=== PATIENT | female | born 1970 | race Caucasian/White ===

== ENCOUNTER 2018-11-08 12:25 | Emergency (ER) | payer BC ==
[2018-11-08 12:42] VITALS: BP 167/95
[2018-11-08] MEDS ORDERED: LORazepam 0.5 MG Tab PO ONE (13:07)
--- NOTE | 2018-11-08 13:14 | EDM.PDOCBH ---
ED HPI GENERAL MEDICAL PROBLEM - General Chief Complaint: Behavioral/Psych Stated Complaint: SEVERE ANXIETY Time Seen by Provider: 11/08/18 12:45 Source of Information: Reports: Patient, RN Notes Reviewed History Limitations: Reports: No Limitations - History of Present Illness INITIAL COMMENTS - FREE TEXT/NARRATIVE: Patient is a 48-year-old female who presents to the ED for the evaluation of an acute anxiety attack. She states that she was at work and her work deemed that she needed to come to the ER for her anxiety symptoms. She states this started around 9 AM this morning, however she does not note any increased stress or triggers in her life that would cause increased anxiety at this time. She takes 40 mg Celexa daily. She states she did not further take any other medications that would have caused anxiety inducing symptoms. She is visibly anxious in the room. - Related Data Allergies Allergy/AdvReac Type Severity Reaction Status Date / Time No Known Allergies Allergy Verified 11/25/15 13:20 Home Meds: Home Meds Citalopram Hydrobromide [Celexa] 40 mg PO DAILY 02/08/15 [History] ALPRAZolam [Alprazolam] 0.5 mg PO Q6H PRN #16 tablet 11/08/18 [Rx] Past Medical History Other [employer] History: spontaneous AB Neurological History: Reports: Migraines Psychiatric History: Reports: Addiction, Anxiety, Depression Other Psychiatric History: denies addiction issues Social & Family History - Tobacco Use Smoking Status *Q: Never Smoker - Caffeine Use Caffeine Use: Reports: Coffee - Recreational Drug Use Recreational Drug Use: No - Living Situation & Occupation Living situation: Reports: Single, Other Occupation: Employed ED ROS GENERAL - Review of Systems Review Of Systems: See Below Constitutional: Reports: No Symptoms HEENT: Reports: No Symptoms Respiratory: Reports: No Symptoms Cardiovascular: Reports: No Symptoms Endocrine: Reports: No Symptoms GI/Abdominal: Reports: No Symptoms : Reports: No Symptoms Musculoskeletal: Reports: No Symptoms Skin: Reports: No Symptoms Neurological: Reports: No Symptoms Psychiatric: Reports: Anxiety Hematologic/Lymphatic: Reports: No Symptoms Immunologic: Reports: No Symptoms ED EXAM, BEHAVIORAL HEALTH - Physical Exam Exam: See Below Exam Limited By: No Limitations General Appearance: Alert, WD/WN, No Apparent Distress, Anxious Eye Exam: Bilateral Eye: EOMI, Normal Inspection, PERRL Ears: Normal External Exam Throat/Mouth: Normal Inspection, Normal Lips, Normal Teeth, Normal Gums, Normal Oropharynx, Normal Voice, No Airway Compromise Head: Atraumatic, Normocephalic Respiratory/Chest: No Respiratory Distress, Lungs Clear, Normal Breath Sounds, No Accessory Muscle Use, Chest Non-Tender Cardiovascular: Normal Peripheral Pulses, Regular Rate, Rhythm, No Murmur Extremities: Normal Inspection, Normal Capillary Refill Neurological: Alert, Normal Mood/Affect, Normal Cognition, Normal Gait, Normal Reflexes, No Motor/Sensory Deficits, Oriented x 3 Psychiatric: Alert, Normal Affect, Normal Cognition, Normal Mood, Oriented Skin Exam: Warm, Dry, Intact, Normal color, No rash COURSE, BEHAVIORAL HEALTH COMP - Course Vital Signs: Last Vital Signs Temp 96.9 F 11/08/18 12:39 Pulse 92 11/08/18 12:39 Resp 20 11/08/18 12:39 BP 167/95 H 11/08/18 12:39 Pulse Ox 96 11/08/18 12:39 Orders, Labs, Meds: Medications Discontinued Medications Generic Name Dose Route Start Last Admin Trade Name Jimena PRN Reason Stop Dose Admin Lorazepam 0.5 mg 11/08/18 13:07 11/08/18 13:25 Ativan PO 11/08/18 13:08 0.5 mg ONETIME ONE Administration Discharge vs Psych Eval/Treatment:: 11/08/18 13:14 Patient presents to the ED for the evaluation of increased anxiety. She is visibly anxious in the room, I did order 0.5 mg by mouth Ativan for treatment of this. I did discuss with the patient that I would be able to provide her with a few tablets for over the weekend, however she will need to follow up with her primary care provider for a sustained prescription of this medication. Departure - Departure Time of Disposition: 13:15 Disposition: Home, Self-Care 01 Condition: Fair Clinical Impression: Anxiety - Discharge Information *PRESCRIPTION DRUG MONITORING PROGRAM REVIEWED*: No *COPY OF PRESCRIPTION DRUG MONITORING REPORT IN PATIENT YESSY: No Prescriptions: ALPRAZolam [Alprazolam] 0.5 mg PO Q6H PRN #16 tablet PRN Reason: Anxiety Instructions: Panic Attack, [id number] Referrals: PCP,None [Primary Care Provider] - Forms: ED Department Discharge, ED Return to Work/School Form Additional Instructions: You have been evaluated in the ED today for your anxiety. You have been given 0.5 mg Ativan for your anxiety symptoms. You have been provided with a few tablets of Alprazolam (Xanax), this is another medicine that works like Ativan (lorazepam) this is for over the weekend, however you will need to follow up with your primary care provider for a sustained prescription of this medication. Please follow-up with them early next week to do so. This medication prescription has been electronically sent to [facility]. Please return to the ED if her symptoms change or worsen.
== END 2018-11-08 13:59 | disposition home or self-care (01) ==
LOC: JD.ED 12:25
DX: F41.9 Anxiety disorder, unspecified (principal); F32.9 Major depressive disorder, single episode, unspecified; Z79.899 Other long term (current) drug therapy
CPT/HCPCS: 99283; A9270

== ENCOUNTER 2020-12-12 09:58 | Emergency (ER) | payer SELFPAY ==
--- NOTE | 2020-12-12 11:05 | EDM.PDOC ---
ED HPI GENERAL MEDICAL PROBLEM - General Chief Complaint: Upper Extremity Injury/Pain Stated Complaint: LT WRIST INJURY Time Seen by Provider: 12/12/20 10:19 Source of Information: Reports: Patient History Limitations: Reports: No Limitations - History of Present Illness INITIAL COMMENTS - FREE TEXT/NARRATIVE: The patient presents with left wrist pain. She said 2 nights ago she was cooking and she fell backward and landed on her left arm. She has pain, swelling and ecchymosis to her left wrist. She did not hurt her head or neck. She is right handed. Onset: Sudden Duration: Day(s): (2) Location: Reports: Upper Extremity, Left (wrist) Quality: Reports: Sharp Severity: Moderate Improves with: Reports: Immobilization Worsens with: Reports: Movement Context: Reports: Trauma (fall) Associated Symptoms: Reports: No Other Symptoms Treatments INSURANCE LAW SPECIALIST: Reports: Cold Therapy Right Wrist Pain Score (Numeric/FACES): 7 - Related Data Allergies Allergy/AdvReac Type Severity Reaction Status Date / Time No Known Allergies Allergy Verified 12/12/20 10:18 Home Meds: Home Meds Citalopram Hydrobromide [Celexa] 40 mg PO DAILY 02/08/15 [History] Hydrocodone/Acetaminophen [Hydrocodone-Acetamin 5-325 mg] 1 - 2 each PO Q6H PRN #15 tablet 12/12/20 [Rx] Past Medical History Other [employer] WORK[employer] History: spontaneous AB Neurological History: Reports: Migraines Psychiatric History: Reports: Addiction, Anxiety, Depression Other Psychiatric History: denies addiction issues Social & Family History - Tobacco Use Tobacco Use Status *Q: Never Tobacco User - Caffeine Use Caffeine Use: Reports: None - Recreational Drug Use Recreational Drug Use: No - Living Situation & Occupation Living situation: Reports: Single, Other Occupation: Employed Review of Systems - Review of Systems Review Of Systems: See Below Constitutional: Reports: No Symptoms Eyes: Reports: No Symptoms Ears: Reports: No Symptoms Nose: Reports: No Symptoms Mouth/Throat: Reports: No Symptoms Respiratory: Reports: No Symptoms Cardiovascular: Reports: No Symptoms GI/Abdominal: Reports: No Symptoms Genitourinary: Reports: No Symptoms Musculoskeletal: Reports: Other (left wrist pain) ED EXAM, GENERAL - Physical Exam Exam: See Below Exam Limited By: No Limitations General Appearance: Alert, No Apparent Distress Ears: Normal External Exam Nose: Normal Inspection Head: Atraumatic, Normocephalic Neck: Normal Inspection Respiratory/Chest: No Respiratory Distress Extremities: Other (pain upon palpation to the left wrist. Edema and ecchymosis noted with ecchymosis in the dorsum of the hand. There is no pain in her hand.) ED TRAUMA EXTREMITY PROCEDURES - Splinting Left Upper Extremity Splint Site: Left wrist Pre-Procedure NV Status: Normal Post-Procedure NV Status: Normal Splint Material: Fiberglass Splint Design: Volar, Sling Applied & Form Fitted By: Provider Provider Post-Splint Application NV Check: NV Status Normal, Good Position Complications: No Course - Vital Signs Last Recorded V/S: Last Vital Signs Temp 98.0 F 12/12/20 10:19 Pulse 93 12/12/20 10:19 Resp 13 12/12/20 10:19 BP 129/90 12/12/20 10:19 Pulse Ox 100 12/12/20 10:19 - Orders/Labs/Meds Orders: Active Orders 24 hr Category Date Time Status Wrist Comp Min 3V Lt [CR] Stat Exams 12/12/20 10:26 Taken - Re-Assessments/Exams Free Text/Narrative Re-Assessment/Exam: 12/12/20 11:13 I ordered an x-ray and she has a distal radius and ulnar fracture. I put her in a splint and sling. I will have her follow up with Dr Abernathy. Departure - Departure Time of Disposition: 11:15 Disposition: Home, Self-Care 01 Condition: Good Clinical Impression: Fall Qualifiers: Encounter type: initial encounter Qualified Code(s): W19.XXXA - Unspecified fall, initial encounter Closed fracture distal radius and ulna Qualifiers: Encounter type: initial encounter Laterality: left Qualified Code(s): S52.502A - Unspecified fracture of the lower end of left radius, initial encounter for closed fracture; S52.602A - Unspecified fracture of lower end of left ulna, init ial encounter for closed fracture - Discharge Information *PRESCRIPTION DRUG MONITORING PROGRAM REVIEWED*: Not Applicable *COPY OF PRESCRIPTION DRUG MONITORING REPORT IN PATIENT YESSY: Not Applicable Prescriptions: Hydrocodone/Acetaminophen [Hydrocodone-Acetamin 5-325 mg] 1 - 2 each PO Q6H PRN #15 tablet PRN Reason: Pain Referrals: PCP,None [Primary Care Provider] - Alan Abernathy MD [Physician] - 1 Week Forms: ED Department Discharge Additional Instructions: Ice your wrist for 15 minutes 3 times per day for 2 days. Try to elevate your wrist above your heart as much as you can for 2 days. Take motrin or tylenol for pain. If that does not help, try the hydrocodone. Follow up with Dr Abernathy. Please return if you are worse. Use the sling for comfort for a couple days. Take it off a couple times per day and move your shoulder to avoid frozen shoulder. Sepsis Event Note (ED) - Evaluation Sepsis Screening Result: No Definite Risk - Focused Exam Vital Signs: Vital Signs Temp Pulse Resp BP Pulse Ox 12/12/20 10:19 98.0 F 93 13 129/90 100 - My Orders Last 24 Hours: My Active Orders 12/12/20 10:26 Wrist Comp Min 3V Lt [CR] Stat - Assessment/Plan Last 24 Hours: My Active Orders 12/12/20 10:26 Wrist Comp Min 3V Lt [CR] Stat
[2020-12-12 11:40] VITALS: BP 130/80; PULSE 70
--- NOTE | 2020-12-14 11:22 | CR ---
Left wrist: 4 views of the left wrist were obtained. Comparison: No prior wrist exam is available. Fracture is noted within the distal radius involving the metaphysis and epiphysis. Slight posterior impaction is seen with dorsal tilt of the distal radial articular margin. Fracture is also noted at the base of the ulnar styloid process. Diffuse soft tissue swelling is noted. No additional fracture or other abnormality is appreciated. Impression: 1. Distal radial fracture with slight posterior impaction causing dorsal tilt of the distal radial articular margin. 2. Ulnar styloid avulsion fracture. 3. Soft tissue swelling. Diagnostic code #3
== END 2020-12-12 11:39 | disposition home or self-care (01) ==
LOC: JD.ED 09:58
DX: S52.602A Unspecified fracture of lower end of left ulna, initial encounter for closed fracture (principal); W18.39XA Other fall on same level, initial encounter; Y93.G3 Activity, cooking and baking
CPT/HCPCS: 29125; 73110-26-LT; 73110-LT; 99283

== ENCOUNTER 2021-01-05 11:49 | Emergency (ER) | payer SELFPAY ==
[2021-01-05 12:13] VITALS: BP 154/102; PULSE 90
--- NOTE | 2021-01-05 12:42 | EDM.PDOC ---
ED HPI GENERAL MEDICAL PROBLEM - General Chief Complaint: Upper Extremity Injury/Pain Stated Complaint: LEFT WRIST INJURY Time Seen by Provider: 01/05/21 12:20 Source of Information: Reports: Patient, RN Notes Reviewed History Limitations: Reports: No Limitations - History of Present Illness INITIAL COMMENTS - FREE TEXT/NARRATIVE: Patient is a 50-year-old female who presents to the ER for a left wrist injury. Patient was seen in this ER on December 12 for similar injury, where she had a impacted fracture of her distal left radius and ulnar styloid fracture. There seem to be some slight dorsal angulation. She was placed in a splint and discharged home to follow-up with orthopedics. As far as I can tell, patient did not follow-up with Ortho and notes that she took her splint off because she thought it was time for her to come off and she had a another injury where she fell and try to catch herself with outstretched arm. She is having pain in her left wrist once again. Patient denies any other sick-like symptoms, fever/chills, cough/shortness of breath, nausea/vomiting/diarrhea. 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 Neurological History: Reports: Migraines Psychiatric History: Reports: Addiction, Anxiety, Depression Other Psychiatric History: denies addiction issues Social & Family History - Tobacco Use Tobacco Use Status *Q: Never Tobacco User - Caffeine Use Caffeine Use: Reports: None - Alcohol Use Days Per Week of Alcohol Use: 7 Number of Drinks Per Day: 12 Total Drinks Per Week: 84 - Recreational Drug Use Recreational Drug Use: No - Living Situation & Occupation Living situation: Reports: Single, Other Occupation: Employed Review of Systems - Review of Systems Review Of Systems: Comprehensive ROS is negative, except as noted in HPI. ED EXAM, GENERAL - Physical Exam Exam: See Below Exam Limited By: No Limitations General Appearance: Alert, WD/WN, No Apparent Distress Respiratory/Chest: No Respiratory Distress, Lungs Clear, Normal Breath Sounds, No Accessory Muscle Use, Chest Non-Tender Cardiovascular: Normal Peripheral Pulses, Regular Rate, Rhythm, No Edema Peripheral Pulses: 2+: Radial (L), Radial (R) Extremities: Normal Range of Motion, Normal Capillary Refill, Other (there is obvious deformity of the left wrist) Neurological: Alert, Oriented, Normal Cognition, No Motor/Sensory Deficits Psychiatric: Normal Affect, Normal Mood Skin Exam: Warm, Dry, Intact, Normal Color, No Rash ED TRAUMA EXTREMITY PROCEDURES - Splinting Left Upper Extremity Splint Site: left wrist Pre-Procedure NV Status: Normal Post-Procedure NV Status: Normal Splint Material: Fiberglass Splint Design: Gutter (ulnar gutter short arm) Applied & Form Fitted By: Provider, Nurse Provider Post-Splint Application NV Check: NV Status Normal, Good Position Complications: No Course - Vital Signs Last Recorded V/S: Last Vital Signs Temp 98.1 F 01/05/21 12:11 Pulse 90 01/05/21 12:11 Resp 16 01/05/21 12:11 BP 154/102 H 01/05/21 12:11 Pulse Ox 99 01/05/21 12:11 - Re-Assessments/Exams Free Text/Narrative Re-Assessment/Exam: 01/05/21 12:41 Patient presents to the ER for her left wrist injury, x-rays were taken at time of triage however due to there being a concurrent break it was hard for me to decide if she had refractured, and/or further injured her wrist. I will have Dr. Abernathy take a look at these x-rays for determination however patient will likely be placed back into a splint and given strict recommendations to follow up with Dr. Abernathy for further management. 01/05/21 12:48 Dr. Abernathy was able to review the images, he does think there is a possibility that the area may have to be re-broken in order for the injury to heal appropriately, but he is okay with her being placed into a splint and having her follow-up with him for further management. Patient notes she did not follow-up with anyone for the initial injury. Departure - Departure Time of Disposition: 12:45 Disposition: Home, Self-Care 01 Condition: Good Clinical Impression: Closed fracture of left radius and ulna Qualifiers: Encounter type: sequela Qualified Code(s): S52.92XS - Unspecified fracture of left forearm, sequela - Discharge Information *PRESCRIPTION DRUG MONITORING PROGRAM REVIEWED*: No *COPY OF PRESCRIPTION DRUG MONITORING REPORT IN PATIENT YESSY: No Instructions: Wrist Fracture Treated With Immobilization, [id number] Referrals: PCP,None [Primary Care Provider] - Forms: ED Department Discharge Additional Instructions: You have been evaluated in the ED for your left wrist injury. Your x-ray demonstrated your previous left wrist fracture, it was hard to delineate new fracture from the old fracture. Your films were reviewed with Orthopedics and you will need to follow up for further management. Please use ice as tolerated to the affected area. You may elevate the affected area to provide further relief from swelling. You may take Tylenol 500 mg or ibuprofen 600mg q6 hrs for pain relief. Please do so until you have a tolerable level of pain with activity. Do not exceed 4000mg Tylenol, Do not exceed 3200mg ibuprofen in a 24 hour time period. Please call Ortho for follow-up and further evaluation Dr. Abernathy is our orthope dic surgeon, his office number is [phone]. Please call and set up an appointment as soon as possible for further management. There is a possibility that this area may need to be re-broken, in order for it to heal properly. Please return to ED if your symptoms should change or worsen. Sepsis Event Note (ED) - Evaluation Sepsis Screening Result: No Definite Risk - Focused Exam Vital Signs: Vital Signs Temp Pulse Resp BP Pulse Ox 01/05/21 12:11 98.1 F 90 16 154/102 H 99
--- NOTE | 2021-01-05 15:31 | CR ---
Left wrist: 4 views of the left wrist were obtained. Comparison: Prior left wrist study of 12/12/20. Fracture is identified within the distal radius. There is mild posterior tilting of the distal radial articular margin. Mild callus is seen around the fracture line. Alignment is stable from previous exam. Prior study showed an ulnar styloid fracture within the base which is not as well-seen on current study. No additional abnormality is appreciated. Impression: 1. Healing distal left radial fracture with mild callus. No change in alignment. 2. No acute osseous abnormality is otherwise seen. Diagnostic code #2
== END 2021-01-05 13:07 | disposition home or self-care (01) ==
LOC: JD.ED 11:49
DX: S52.92XA Unspecified fracture of left forearm, initial encounter for closed fracture (principal); W18.39XA Other fall on same level, initial encounter
CPT/HCPCS: 29125; 73110-26-LT; 73110-LT; 99282; 99283-25

== ENCOUNTER 2022-03-04 06:59 | Emergency (ER) | payer MEDICAID, OTHER ==
[2022-03-04 08:06] VITALS: BP 125/94; PULSE 72
== END 2022-03-04 08:40 | disposition home or self-care (01) ==
LOC: JD.ED 06:59
DX: S82.62XA Displaced fracture of lateral malleolus of left fibula, initial encounter for closed fracture (principal); X50.1XXA Overexertion from prolonged static or awkward postures, initial encounter; Y99.0 Civilian activity done for income or pay
CPT/HCPCS: 73610-26-LT; 73610-LT; 99283

== ENCOUNTER 2024-03-28 08:50 | Inpatient (IN) | payer BC ==
[2024-03-28 10:06] LABS: BASOPHILS ABSOLUTE AUTO 0.1 K/mm3 (0.0-0.2); BASOPHILS PERCENT AUTO 0.6 % (0.0-1.0); EOSINOPHILS ABSOLUTE AUTO 0.2 K/mm3 (0.0-0.4); EOSINOPHILS PERCENT AUTO 1.7 % (0.0-6.0); HEMATOCRIT 41.4 % (37.0-47.0); HEMOGLOBIN 15.5 gm/dl (12.0-16.0); IMMATURE GRAN ABSOLUTE AUTO 0.21 K/mm3 (0.00-0.05); IMMATURE GRAN PERCENT AUTO 1.5 % (0.0-0.4); LYMPHOCYTES ABSOLUTE AUTO 1.5 K/mm3 (1.0-4.8); LYMPHOCYTES PERCENT AUTO 10.9 % (24.0-44.0); MEAN CORPUSCULAR HEMOGLOBIN 32.7 pg (28.0-32.0); MEAN CORPUSCULAR HGB CONC 37.4 g/dl (32.0-36.0); MEAN CORPUSCULAR VOLUME 87.3 fl (83.0-99.0); MONOCYTES ABSOLUTE AUTO 0.8 K/mm3 (0.0-0.8); MONOCYTES PERCENT AUTO 5.5 % (0.0-8.0); NEUTROPHILS ABSOLUTE AUTO 11.3 K/mm3 (1.8-7.7); NEUTROPHILS PERCENT AUTO 79.8 % (41.0-71.0); NRBC ABSOLUTE 0.08 (0.00-0.02); NRBC PERCENT 0.6 % (0.0-0.2); PLATELET COUNT,PLT 152 K/mm3 (150-400); RED BLOOD CELL COUNT 4.74 M/mm3 (4.10-5.30); WHITE BLOOD CELL COUNT,WBC 14.12 K/mm3 (3.9-11.3)
[2024-03-28] MEDS: Sodium Chloride 0.9% 1,000 ML IV SCH ×2 (10:12→17:12)
[2024-03-28] MEDS: Sodium Chloride 0.9% 10 ML Syringe FLUSH PRN (10:12)
[2024-03-28 10:46] LABS: INR 1.21; PROTHROMBIN TIME 12.7 SECONDS (9.7-12.0)
[2024-03-28 10:47] LABS: PTT,PARTIAL THROMBOPLSTIN TIME 25.2 SECONDS (21.7-31.4)
[2024-03-28 10:56] LABS: A/G RATIO 1.1 (1-2); ALANINE AMINOTRANSFERASE,ALT 177 U/L (14-59); ALBUMIN 3.9 g/dl (3.4-5.0); ALKALINE PHOSPHATASE 117 U/L (46-116); ASPARTATE AMNIOTRANSFERASE,AST 344 U/L (15-37); BILIRUBIN TOTAL 1.3 mg/dL (0.2-1.0); BLOOD UREA NITROGEN,BUN 65 mg/dL (7-18); BUN/CREATININE RATIO 24.1 (14-18); C-REACTIVE PROTEIN 14.91 mg/dL (<0.30); CALCIUM 9.1 mg/dL (8.5-10.1); CARBON DIOXIDE,CO2 17 mEq/L (21-32); CHLORIDE,CL 82 mEq/L (98-107); CREATININE 2.7 mg/dL (0.55-1.02); ESTIMATED GFR 21 mL/min (>60); GLUCOSE RANDOM 127 mg/dL (70-99); LIPASE 64 U/L (16-77); MAGNESIUM 2.5 mg/dL (1.8-2.4); PROTEIN TOTAL,TP 7.6 g/dl (6.4-8.2); SODIUM,NA 124 mEq/L (136-145)
[2024-03-28 11:00] LABS: TROPONIN I HIGH SENSITIVITY 167 pg/mL (<=51)
[2024-03-28 11:17] LABS: CREATINE KINASE,CK 14493 U/L (26-192)
[2024-03-28] MEDS: Sodium Chloride 0.9% 1,000 ML IV ONE (11:37)
[2024-03-28] MEDS: Thiamine 200 MG/2 ML MDV IVPUSH ONE (15:15)
[2024-03-28 16:26] LABS: BARBITURATE SCREEN,URINE NEGATIVE (CUTOFF=200); BENZODIAZEPINES SCREEN,URINE NEGATIVE (CUTOFF=150); BUPRENORPHINE SCREEN,URINE NEGATIVE (CUTOFF=10); METHADONE SCREEN, URINE NEGATIVE (CUTOFF=200); METHAMPHETAMINES SCREEN, URINE NEGATIVE (CUTOFF=500); OXYCODONE SCREEN,URINE NEGATIVE (CUT0FF=100); THC SCREEN,URINE 20 NG/ML NEGATIVE (CUTOFF=50)
[2024-03-28 16:27] LABS: APPEARANCE,URINE SLT CLOUDY (Clear); BILIRUBIN,URINE 2+ (Negative); COLOR,URINE YELLOW (Yellow); GLUCOSE,URINE NEGATIVE (Negative); KETONES,URINE 2+ (Negative); LEUKOCYTE ESTERASE,URINE NEGATIVE (Negative); NITRITE,URINE NEGATIVE (Negative); OCCULT BLOOD,URINE 2+ (Negative); PH,URINE 5.5 (5.0-8.0); PROTEIN,URINE 2+ (Negative); UROBILINOGEN,URINE 0.2 (0.2-1.0)
[2024-03-28 16:29] LABS: AMPHETAMINES SCREEN, URINE NEGATIVE (CUTOFF=500)
[2024-03-28 16:43] LABS: A/G RATIO 1.2 (1-2); ALBUMIN 3.4 g/dl (3.4-5.0); ANION GAP 23.9 (5-15); BILIRUBIN TOTAL 1.5 mg/dL (0.2-1.0); BUN/CREATININE RATIO 35.3 (14-18); C-REACTIVE PROTEIN 11.19 mg/dL (<0.30); CALCIUM 8.2 mg/dL (8.5-10.1); CREATININE 1.5 mg/dL (0.55-1.02); EST CRCL DRUG DOSING (CG) 37.88 mL/min; MAGNESIUM 2.2 mg/dL (1.8-2.4); PHOSPHORUS 2.8 mg/dL (2.6-4.7); PROTEIN TOTAL,TP 6.2 g/dl (6.4-8.2)
[2024-03-28 16:46] LABS: POTASSIUM,K 3.9 mEq/L (3.5-5.1)
[2024-03-28 16:49] LABS: HEMATOCRIT 35.8 % (37.0-47.0); HEMOGLOBIN 13.3 gm/dl (12.0-16.0); MEAN CORPUSCULAR HEMOGLOBIN 32.7 pg (28.0-32.0); MEAN CORPUSCULAR HGB CONC 37.2 g/dl (32.0-36.0); NRBC ABSOLUTE 0.03 (0.00-0.02); NRBC PERCENT 0.2 % (0.0-0.2); PLATELET COUNT,PLT 121 K/mm3 (150-400); RED BLOOD CELL COUNT 4.07 M/mm3 (4.10-5.30); WHITE BLOOD CELL COUNT,WBC 12.35 K/mm3 (3.9-11.3)
[2024-03-28 16:53] LABS: BACTERIA,URINE MODERATE /hpf (FEW); MUCUS,URINE FEW /hpf (FEW); SQUAMOUS EPITHELIAL CELLS,UR 0-5 /hpf (0-5); WBC,URINE 0-5 /hpf (0-5)
[2024-03-28 17:18] LABS: SALICYLATE 1.6 mg/dL (2.8-20)
[2024-03-28 17:32] LABS: TSH 2.28 uIU/mL (0.358-3.74)
[2024-03-28] MEDS ORDERED: Morphine 2 MG/ML SYRINGE IVPUSH PRN (17:45)
[2024-03-28 18:02] LABS: FOLIC ACID 18.9 ng/mL (8.6-58.9)
[2024-03-28] MEDS ORDERED: Naloxone 0.4 MG/ML SDV IVPUSH PRN (18:06)
[2024-03-28 18:10] LABS: BAND PERCENT MAN 1 % (0-10); BASOPHILS PERCENT MAN 0 (0.1-1.2); EOSINOPHILS PERCENT MAN 0 % (0.7-5.8); LYMPHOCYTES % ATYPICAL MANUAL 0 %; LYMPHOCYTES PERCENT MAN 14 % (20-40); MONOCYTES PERCENT MAN 6 % (2-10)
[2024-03-28 18:11] LABS: PLATELET COUNT ESTIMATE DECREASED; SPHEROCYTES FEW
[2024-03-28 18:12] LABS: TOXIC GRANULATION FEW
[2024-03-28 19:08] LABS: HEPATITIS C AB NON-REACTIVE (Non-React)
[2024-03-28] MEDS: LORazepam 2 MG/ML SDV IVPUSH PRN (19:37)
[2024-03-28] MEDS: Famotidine 20 MG/2 ML SDV IVPUSH SCH (20:40)
[2024-03-29 08:07] LABS: BASOPHILS PERCENT AUTO 0.2 % (0.0-1.0); EOSINOPHILS PERCENT AUTO 0.2 % (0.0-6.0); HEMATOCRIT 31.9 % (37.0-47.0); HEMOGLOBIN 11.9 gm/dl (12.0-16.0); IMMATURE GRAN PERCENT AUTO 1.1 % (0.0-0.4); LYMPHOCYTES ABSOLUTE AUTO 1.7 K/mm3 (1.0-4.8); LYMPHOCYTES PERCENT AUTO 17.6 % (24.0-44.0); MEAN CORPUSCULAR HEMOGLOBIN 33.3 pg (28.0-32.0); MEAN CORPUSCULAR HGB CONC 37.3 g/dl (32.0-36.0); MEAN CORPUSCULAR VOLUME 89.4 fl (83.0-99.0); MEAN PLATELET VOLUME 10.3 fl (9.4-12.3); MONOCYTES ABSOLUTE AUTO 0.8 K/mm3 (0.0-0.8); NEUTROPHILS ABSOLUTE AUTO 6.8 K/mm3 (1.8-7.7); NEUTROPHILS PERCENT AUTO 72.9 % (41.0-71.0); NRBC ABSOLUTE 0.04 (0.00-0.02); NRBC PERCENT 0.4 % (0.0-0.2); PLATELET COUNT,PLT 153 K/mm3 (150-400); RED BLOOD CELL COUNT 3.57 M/mm3 (4.10-5.30); WHITE BLOOD CELL COUNT,WBC 9.36 K/mm3 (3.9-11.3)
[2024-03-29] MEDS: Thiamine 100 MG in Sodium Chloride 0.9% 100 ML IV ONE (08:11)
[2024-03-29 09:02] LABS: ALBUMIN 3.1 g/dl (3.4-5.0); ANION GAP 18.3 (5-15); BILIRUBIN TOTAL 1.4 mg/dL (0.2-1.0); BUN/CREATININE RATIO 27.5 (14-18); C-REACTIVE PROTEIN 8.98 mg/dL (<0.30); CALCIUM 8.4 mg/dL (8.5-10.1); CREATININE 0.8 mg/dL (0.55-1.02); EST CRCL DRUG DOSING (CG) 71.03 mL/min; MAGNESIUM 2.3 mg/dL (1.8-2.4); PHOSPHORUS 1.5 mg/dL (2.6-4.7); PROTEIN TOTAL,TP 6.2 g/dl (6.4-8.2)
[2024-03-29 09:06] LABS: POTASSIUM,K 2.3 mEq/L (3.5-5.1)
[2024-03-29] MEDS: Enoxaparin 40 MG/0.4 ML Syringe SUBCUT SCH (09:37)
[2024-03-29] MEDS: Potassium Phosphates 30 MMOLE in Sodium Chloride 0.9% 500 ML IV SCH (09:37)
[2024-03-29] MEDS: Potassium Chloride 20 MEQ Tab.ER PO ONE ×2 (09:37→20:23)
[2024-03-29 14:46] LABS: ANION GAP 16.2 (5-15); BUN/CREATININE RATIO 25.7 (14-18); CALCIUM 8.3 mg/dL (8.5-10.1); CREATININE 0.7 mg/dL (0.55-1.02); EST CRCL DRUG DOSING (CG) 81.18 mL/min; POTASSIUM,K 3.2 mEq/L (3.5-5.1)
[2024-03-29] MEDS: Topiramate 25 MG Tab PO SCH (17:37)
[2024-03-29] MEDS: Folic Acid 1 MG Tab PO SCH (17:37)
[2024-03-29] MEDS: Benzocaine/Cetylpyridinium/Menthol Lozenge MUCMEM PRN (18:14)
[2024-03-29] MEDS: Citalopram 10 MG Tab PO SCH (19:11)
[2024-03-29] MEDS: Thiamine 100 MG Tab PO SCH (20:24)
[2024-03-29] MEDS ORDERED: Citalopram 20 MG Tab PO SCH (21:00)
[2024-03-30 05:43] LABS: A/G RATIO 0.9 (1-2); ALBUMIN 2.5 g/dl (3.4-5.0); ANION GAP 14.7 (5-15); CREATININE 0.7 mg/dL (0.55-1.02); EST CRCL DRUG DOSING (CG) 81.18 mL/min; MAGNESIUM 1.9 mg/dL (1.8-2.4); PHOSPHORUS 2.1 mg/dL (2.6-4.7); POTASSIUM,K 2.7 mEq/L (3.5-5.1); PROTEIN TOTAL,TP 5.2 g/dl (6.4-8.2)
[2024-03-30 05:49] LABS: BASOPHILS PERCENT AUTO 0.1 % (0.0-1.0); EOSINOPHILS PERCENT AUTO 0.4 % (0.0-6.0); HEMATOCRIT 27.6 % (37.0-47.0); IMMATURE GRAN ABSOLUTE AUTO 0.11 K/mm3 (0.00-0.05); IMMATURE GRAN PERCENT AUTO 1.2 % (0.0-0.4); LYMPHOCYTES ABSOLUTE AUTO 2.5 K/mm3 (1.0-4.8); LYMPHOCYTES PERCENT AUTO 27.9 % (24.0-44.0); MEAN CORPUSCULAR HEMOGLOBIN 33.8 pg (28.0-32.0); MEAN CORPUSCULAR HGB CONC 37.3 g/dl (32.0-36.0); MEAN CORPUSCULAR VOLUME 90.5 fl (83.0-99.0); MEAN PLATELET VOLUME 9.9 fl (9.4-12.3); MONOCYTES ABSOLUTE AUTO 1.3 K/mm3 (0.0-0.8); MONOCYTES PERCENT AUTO 13.9 % (0.0-8.0); NEUTROPHILS ABSOLUTE AUTO 5.1 K/mm3 (1.8-7.7); NEUTROPHILS PERCENT AUTO 56.5 % (41.0-71.0); PLATELET COUNT,PLT 144 K/mm3 (150-400); RED BLOOD CELL COUNT 3.05 M/mm3 (4.10-5.30)
[2024-03-30 05:55] LABS: HEMOGLOBIN 10.3 gm/dl (12.0-16.0)
[2024-03-30] MEDS ORDERED: Potassium Phosphates 30 MMOLE in Sodium Chloride 0.9% 500 ML IV SCH ×2 (09:00→12:00)
[2024-03-30] MEDS: Potassium Bicarbonate/Cit Ac 20 MEQ Effervescent Tab PO ONE (09:05)
[2024-03-30 14:19] LABS: ANION GAP 14.3 (5-15); CALCIUM 8.1 mg/dL (8.5-10.1); CREATININE 0.7 mg/dL (0.55-1.02); EST CRCL DRUG DOSING (CG) 81.18 mL/min; POTASSIUM,K 3.3 mEq/L (3.5-5.1)
[2024-03-30] MEDS: Potassium Chloride 10 MEQ in Premix Bag 1 BAG IV SCH (17:30)
[2024-03-31 05:33] LABS: BASOPHILS PERCENT AUTO 0.5 % (0.0-1.0); EOSINOPHILS ABSOLUTE AUTO 0.1 K/mm3 (0.0-0.4); EOSINOPHILS PERCENT AUTO 1.5 % (0.0-6.0); HEMATOCRIT 28.2 % (37.0-47.0); HEMOGLOBIN 10.2 gm/dl (12.0-16.0); IMMATURE GRAN ABSOLUTE AUTO 0.38 K/mm3 (0.00-0.05); IMMATURE GRAN PERCENT AUTO 4.7 % (0.0-0.4); LYMPHOCYTES ABSOLUTE AUTO 2.4 K/mm3 (1.0-4.8); MEAN CORPUSCULAR HGB CONC 36.2 g/dl (32.0-36.0); MEAN CORPUSCULAR VOLUME 91.3 fl (83.0-99.0); MEAN PLATELET VOLUME 9.2 fl (9.4-12.3); MONOCYTES ABSOLUTE AUTO 1.5 K/mm3 (0.0-0.8); MONOCYTES PERCENT AUTO 18.9 % (0.0-8.0); NEUTROPHILS ABSOLUTE AUTO 3.6 K/mm3 (1.8-7.7); NEUTROPHILS PERCENT AUTO 44.4 % (41.0-71.0); PLATELET COUNT,PLT 166 K/mm3 (150-400); RED BLOOD CELL COUNT 3.09 M/mm3 (4.10-5.30); WHITE BLOOD CELL COUNT,WBC 8.01 K/mm3 (3.9-11.3)
[2024-03-31 05:49] LABS: ALBUMIN 2.6 g/dl (3.4-5.0); ANION GAP 13.4 (5-15); BILIRUBIN TOTAL 0.8 mg/dL (0.2-1.0); CALCIUM 8.3 mg/dL (8.5-10.1); CREATININE 0.6 mg/dL (0.55-1.02); EST CRCL DRUG DOSING (CG) 94.71 mL/min; MAGNESIUM 1.7 mg/dL (1.8-2.4); PHOSPHORUS 3.4 mg/dL (2.6-4.7); POTASSIUM,K 3.4 mEq/L (3.5-5.1); PROTEIN TOTAL,TP 5.3 g/dl (6.4-8.2)
[2024-03-31] MEDS: Potassium Chloride 10 MEQ in Premix Bag 1 BAG IV SCH (16:50)
[2024-03-31] MEDS: Magnesium Sulfate/Water 4 GM in Premix Bag 1 BAG IV ONE (16:50)
[2024-03-31] MEDS: Thiamine 100 MG Tab PO SCH (22:06)
[2024-03-31] MEDS: oxyCODONE 5 MG Tab PO PRN (23:49)
[2024-04-01 05:28] LABS: HEMATOCRIT 30.1 % (37.0-47.0); HEMOGLOBIN 10.6 gm/dl (12.0-16.0); MEAN CORPUSCULAR HEMOGLOBIN 33.1 pg (28.0-32.0); MEAN CORPUSCULAR HGB CONC 35.2 g/dl (32.0-36.0); MEAN CORPUSCULAR VOLUME 94.1 fl (83.0-99.0); MEAN PLATELET VOLUME 8.8 fl (9.4-12.3); PLATELET COUNT,PLT 224 K/mm3 (150-400); WHITE BLOOD CELL COUNT,WBC 8.04 K/mm3 (3.9-11.3)
[2024-04-01 05:34] LABS: ANION GAP 14.7 (5-15); BUN/CREATININE RATIO 13.3 (14-18); CREATININE 0.6 mg/dL (0.55-1.02); EST CRCL DRUG DOSING (CG) 94.71 mL/min; MAGNESIUM 2.2 mg/dL (1.8-2.4); POTASSIUM,K 3.7 mEq/L (3.5-5.1)
[2024-04-01] MEDS: Potassium Chloride 20 MEQ Tab.ER PO ONE (09:10)
[2024-04-01] MEDS: Sodium Chloride 0.9% 500 ML IV ONE (11:50)
[2024-04-02 05:01] LABS: ANION GAP 16.5 (5-15); CALCIUM 8.3 mg/dL (8.5-10.1); CREATININE 0.6 mg/dL (0.55-1.02); EST CRCL DRUG DOSING (CG) 94.71 mL/min; POTASSIUM,K 3.5 mEq/L (3.5-5.1)
[2024-04-02] MEDS: Sennosides/Docusate Sodium 50-8.6 MG Tab PO PRN (08:40)
[2024-04-02] MEDS: LORazepam 2 MG/ML SDV IM PRN ×2 (10:02→12:22)
[2024-04-02] MEDS: Lidocaine 2% Viscous Solution 15 ML UD PO PRN (10:02)
[2024-04-02] MEDS: Aluminum Hydroxide/Magnesium Hydroxide/Simethicone Susp 30 ML Cup PO PRN (10:02)
[2024-04-02] MEDS: OLANZapine 10 MG Vial IM ONE (10:05)
[2024-04-02] MEDS: LORazepam 2 MG/ML SDV IM STA (11:26)
[2024-04-02] MEDS: LORazepam 2 MG/ML SDV IM ONE (12:37)
[2024-04-02 18:26] LABS: BASOPHILS PERCENT AUTO 0.2 % (0.0-1.0); EOSINOPHILS PERCENT AUTO 0.1 % (0.0-6.0); HEMATOCRIT 33.5 % (37.0-47.0); HEMOGLOBIN 11.8 gm/dl (12.0-16.0); IMMATURE GRAN ABSOLUTE AUTO 0.15 K/mm3 (0.00-0.05); IMMATURE GRAN PERCENT AUTO 1.4 % (0.0-0.4); LYMPHOCYTES ABSOLUTE AUTO 2.1 K/mm3 (1.0-4.8); LYMPHOCYTES PERCENT AUTO 20.2 % (24.0-44.0); MEAN CORPUSCULAR HEMOGLOBIN 33.1 pg (28.0-32.0); MEAN CORPUSCULAR HGB CONC 35.2 g/dl (32.0-36.0); MEAN CORPUSCULAR VOLUME 94.1 fl (83.0-99.0); MEAN PLATELET VOLUME 8.3 fl (9.4-12.3); MONOCYTES ABSOLUTE AUTO 1.5 K/mm3 (0.0-0.8); MONOCYTES PERCENT AUTO 13.7 % (0.0-8.0); NEUTROPHILS ABSOLUTE AUTO 6.8 K/mm3 (1.8-7.7); NEUTROPHILS PERCENT AUTO 64.4 % (41.0-71.0); PLATELET COUNT,PLT 334 K/mm3 (150-400); RED BLOOD CELL COUNT 3.56 M/mm3 (4.10-5.30); WHITE BLOOD CELL COUNT,WBC 10.55 K/mm3 (3.9-11.3)
[2024-04-02] MEDS: Acetaminophen 325 MG Tab PO PRN (19:44)
[2024-04-02] MEDS: Melatonin 3 MG Tab PO PRN (23:56)
[2024-04-03 05:32] LABS: A/G RATIO 0.8 (1-2); ALBUMIN 2.8 g/dl (3.4-5.0); BILIRUBIN TOTAL 0.5 mg/dL (0.2-1.0); CALCIUM 8.7 mg/dL (8.5-10.1); CREATININE 0.8 mg/dL (0.55-1.02); EST CRCL DRUG DOSING (CG) 71.03 mL/min; MAGNESIUM 1.9 mg/dL (1.8-2.4); PHOSPHORUS 3.9 mg/dL (2.6-4.7); PROTEIN TOTAL,TP 6.2 g/dl (6.4-8.2)
[2024-04-03 05:36] LABS: BASOPHILS ABSOLUTE AUTO 0.1 K/mm3 (0.0-0.2); BASOPHILS PERCENT AUTO 0.5 % (0.0-1.0); EOSINOPHILS PERCENT AUTO 0.1 % (0.0-6.0); HEMOGLOBIN 11.5 gm/dl (12.0-16.0); IMMATURE GRAN ABSOLUTE AUTO 0.15 K/mm3 (0.00-0.05); IMMATURE GRAN PERCENT AUTO 1.4 % (0.0-0.4); LYMPHOCYTES ABSOLUTE AUTO 2.2 K/mm3 (1.0-4.8); LYMPHOCYTES PERCENT AUTO 20.4 % (24.0-44.0); MEAN CORPUSCULAR HEMOGLOBIN 32.9 pg (28.0-32.0); MEAN CORPUSCULAR HGB CONC 34.8 g/dl (32.0-36.0); MEAN CORPUSCULAR VOLUME 94.3 fl (83.0-99.0); MEAN PLATELET VOLUME 8.4 fl (9.4-12.3); MONOCYTES ABSOLUTE AUTO 1.5 K/mm3 (0.0-0.8); MONOCYTES PERCENT AUTO 13.6 % (0.0-8.0); NEUTROPHILS ABSOLUTE AUTO 6.9 K/mm3 (1.8-7.7); PLATELET COUNT,PLT 349 K/mm3 (150-400); WHITE BLOOD CELL COUNT,WBC 10.77 K/mm3 (3.9-11.3)
[2024-04-03] MEDS: OLANZapine 5 MG Tab PO SCH (08:08)
[2024-04-03] MEDS: Potassium Chloride 20 MEQ Tab.ER PO ONE ×3 (10:57→18:04)
[2024-04-03] MEDS: Polyethylene Glycol 3350 Powder 17 GM Packet PO SCH (17:53)
[2024-04-03] MEDS: LORazepam 1 MG Tab PO PRN (18:13)
[2024-04-03] MEDS: traZODone 50 MG Tab PO SCH (20:48)
[2024-04-04 10:58] LABS: A/G RATIO 0.8 (1-2); ALBUMIN 3.1 g/dl (3.4-5.0); ANION GAP 16.7 (5-15); BILIRUBIN TOTAL 0.5 mg/dL (0.2-1.0); CALCIUM 9.1 mg/dL (8.5-10.1); CREATININE 0.8 mg/dL (0.55-1.02); EST CRCL DRUG DOSING (CG) 71.03 mL/min; POTASSIUM,K 3.7 mEq/L (3.5-5.1); PROTEIN TOTAL,TP 6.8 g/dl (6.4-8.2)
[2024-04-04] MEDS: Benzocaine/Cetylpyridinium/Menthol Lozenge MUCMEM PRN (11:52)
[2024-04-04] MEDS: Calcium Carbonate 500 MG Tab.Chew PO PRN (17:59)
[2024-04-04] MEDS: QUEtiapine 25 MG Tab PO SCH (21:08)
[2024-04-04 21:47] LABS: VITAMIN B1, WHOLE BLOOD 112 nmol/L (70-180)
[2024-04-06] MEDS: Ibuprofen 400 MG Tab PO ONE (18:21)
[2024-04-06] MEDS: Pantoprazole 40 MG Tab.CR PO SCH (18:22)
[2024-04-06] MEDS: Pantoprazole 40 MG Tab.CR PO ONE (18:23)
[2024-04-07] MEDS ORDERED: Pantoprazole 40 MG Tab.CR PO SCH (17:36)
[2024-04-10 22:26] VITALS: BP 123/98; PULSE 81
== END 2024-04-11 08:31 | DRG 469 ==
LOC: JD.ED 08:50 → JD.ICU 13:59
PROVIDERS: ADMIT Student in an Organized Health Care Education/Training Program; ATTEND Family Medicine
DX: N17.9 Acute kidney failure, unspecified (principal); G93.41 Metabolic encephalopathy; T79.6XXA Traumatic ischemia of muscle, initial encounter; E87.1 Hypo-osmolality and hyponatremia; E87.6 Hypokalemia; F10.231 Alcohol dependence with withdrawal delirium; F10.221 Alcohol dependence with intoxication delirium; E87.20 Acidosis, unspecified; R45.851 Suicidal ideations; K70.10 Alcoholic hepatitis without ascites; R94.31 Abnormal electrocardiogram [ECG] [EKG]; E83.42 Hypomagnesemia; E83.39 Other disorders of phosphorus metabolism; R74.01 Elevation of levels of liver transaminase levels; R26.2 Difficulty in walking, not elsewhere classified; K76.0 Fatty (change of) liver, not elsewhere classified; F41.9 Anxiety disorder, unspecified; F32.A Depression, unspecified; E80.6 Other disorders of bilirubin metabolism; W10.9XXA Fall (on) (from) unspecified stairs and steps, initial encounter; Y92.89 Other specified places as the place of occurrence of the external cause
CPT/HCPCS: 36415; 70450; 70450-26; 71045; 71045-26; 73564-26-RT; 73564-RT; 735902650; 73590-50; 76705; 76705-26; 80048; 80053; 80143; 80179; 80306; 80307; 81001; 82140; 82550; 82607; 82746; 83605; 83690; 83735; 84100; 84425; 84443; 84484; 85007; 85025; 85027; 85610; 85730; 86140; 86803; 87040; 93005; 93010; 93306; 96360; 96361; 97110-GP; 97116-GP; 97161-GP; 99285; 99285-25; A9270-GY; J1650; J2060; J2405; J3411; J3475; J3480; J3490; J7030; J7040